=== PATIENT | female | born 2000 | race American Indian/Alaskan Native ===

== ENCOUNTER 2020-08-12 10:47 | Emergency (ER) | payer SELFPAY ==
[2020-08-12 11:05] VITALS: BP 137/68
[2020-08-12 12:20] LABS: Bilirubin,Urine NEG (Negative); Blood,Urine NEG (Negative); Color,Urine Yellow (Yellow); Mucus,Urine FEW /HPF; Protein,Urine <15 mg/dL mg/dL (Negative); Urobilinogen,Urine < 2.0 mg/dL (<2.0)
[2020-08-12 12:24] LABS: HCG Qualitative,Urine Positive (Negative)
--- NOTE | 2020-08-12 16:27 | Emergency Department Report ---
ED Female HPI - General Chief complaint: Urogenital-Female Stated complaint: POSS UTI Time Seen by Provider: 08/12/20 11:44 Source: patient Mode of arrival: Ambulatory Limitations: No Limitations - History of Present Illness Initial comments: 20-year-old F Bulgarian female with emerge department complaining possible sexual encounter which resulted in likely STD as she is been reporting some vaginal discharge some episodes of burning. Reports no pelvic pain no flank pain no fever, chills, sweats no hematuria. No vaginal bleeding. She is unsure if her partner actually has gonorrhea or chlamydia but thinks that it may have been 1 of the 2. She reports no vaginal rashes Severity: mild Quality: burning Improves with: none Worsens with: none Associated Symptoms: vaginal discharge. denies: vaginal bleeding, abdominal p ain, nausea/vomiting, loss of appetite, dysuria, hematuria, rash, shortness of breath, syncope, weakness - Related Data Previous Rx's Medication Instructions Recorded Last Taken Type Azithromycin [Zithromax TAB] 1,000 mg PO ONCE #2 tablet 08/12/20 Unknown Rx Cefixime [Suprax] 400 mg PO ONCE #1 capsule 08/12/20 Unknown Rx metroNIDAZOLE [Flagyl] 2,000 mg PO ONCE #4 tablet 08/12/20 Unknown Rx Allergies Allergy/AdvReac Type Severity Reaction Status Date / Time No Known Allergies Allergy Unverified 08/12/20 11:00 ED Review of Systems ROS: Stated complaint: POSS UTI Other details as noted in HPI Comment: All other systems reviewed and negative ED Past Medical Hx - Past Medical History Previous Medical History?: No - Surgical History Past Surgical History?: No - Social History Smoking Status: Never Smoker Substance Use Type: None - Medications Home Medications: Home Medications Medication Instructions Recorded Confirmed Last Taken Type Azithromycin [Zithromax TAB] 1,000 mg PO ONCE #2 tablet 08/12/20 Unknown Rx Cefixime [Suprax] 400 mg PO ONCE #1 capsule 08/12/20 Unknown Rx metroNIDAZOLE [Flagyl] 2,000 mg PO ONCE #4 tablet 08/12/20 Unknown Rx ED Physical Exam - General Limitations: No Limitations General appearance: alert, in no apparent distress - Head Head exam: Present: atraumatic, normocephalic - Eye Eye exam: Present: normal appearance, PERRL, EOMI Pupils: Present: normal accommodation - ENT ENT exam: Present: normal exam, normal orophraynx, mucous membranes moist - Neck Neck exam: Present: normal inspection - Respiratory Respiratory exam: Present: normal lung sounds bilaterally. Absent: respiratory distress - Cardiovascular Cardiovascular Exam: Present: regular rate, normal rhythm. Absent: systolic murmur, diastolic murmur, rubs, gallop - GI/Abdominal GI/Abdominal exam: Present: soft, normal bowel sounds - Extremities Exam Extremities exam: Present: normal inspection - Back Exam Back exam: Present: normal inspection - Neurological Exam Neurological exam: Present: alert, oriented X3 - Psychiatric Psychiatric exam: Present: normal affect, normal mood - Skin Skin exam: Present: warm, dry, intact, normal color. Absent: rash ED Course Vital Signs 08/12/20 11:03 Temperature 99.0 F Pulse Rate 88 Respiratory 18 Rate Blood Pressure 137/68 O2 Sat by Pulse 100 Oximetry ED Medical Decision Making - Lab Data Lab Results 08/12/20 Range/Units 11:05 Urine Color Yellow (Yellow) Urine Turbidity Clear (Clear) Urine pH 7.0 (5.0-7.0) Ur Specific Webb 1.019 (1.003-1.030) Urine Protein <15 mg/dl (Negative) mg/dL Urine Glucose (UA) Neg (Negative) mg/dL Urine Ketones Neg (Negative) mg/dL Urine Blood Neg (Negative) Urine Nitrite Neg (Negative) Urine Bilirubin Neg (Negative) Urine Urobilinogen < 2.0 (<2.0) mg/dL Ur Leukocyte Esterase Sm (Negative) Urine WBC (Auto) 4.0 (0.0-6.0) /HPF Urine RBC (Auto) 3.0 (0.0-6.0) /HPF U Epithel Cells (Auto) 6.0 (0-13.0) /HPF Urine Mucus Few /HPF Urine HCG, Qual Positive A (Negative) Critical care attestation.: If time is entered above; I have spent that time in minutes in the direct care of this critically ill patient, excluding procedure time. ED Disposition Clinical Impression: STD exposure, Vaginitis, Disposition: TO HOME OR SELFCARE Is pt being admited?: No Does the pt Need Aspirin: No Condition: Stable Instructions: Vaginitis (ED), Safe Sex (ED), Sexually Transmitted Diseases (ED) Prescriptions: metroNIDAZOLE [Flagyl] 2,000 mg PO ONCE #4 tablet Cefixime [Suprax] 400 mg PO ONCE #1 capsule Azithromycin [Zithromax TAB] 1,000 mg PO ONCE #2 tablet Referrals: BERONICA NICKERSON MD [Primary Care Provider] - 3-5 Days
== END 2020-08-12 16:20 | disposition home or self-care (01) ==
LOC: ED 10:47
DX: O26.891 Other specified pregnancy related conditions, first trimester (principal); O23.591 Infection of other part of genital tract in pregnancy, first trimester; Z20.2 Contact with and (suspected) exposure to infections with a predominantly sexual mode of transmission; Z3A.01 Less than 8 weeks gestation of pregnancy
CPT/HCPCS: 81001; 81025; 87210; 87591; 99283

== ENCOUNTER 2020-09-24 14:50 | Emergency (ER) | payer SELFPAY | END 2020-09-24 22:30 | disposition left against medical advice (07) | LOC: ED 14:50 | DX: O46.91 Antepartum hemorrhage, unspecified, first trimester (principal); Z3A.12 12 weeks gestation of pregnancy; Z53.21 Procedure and treatment not carried out due to patient leaving prior to being seen by health care provider ==

== ENCOUNTER 2021-01-04 15:43 | Emergency (ER) | payer MEDICAID ==
[2021-01-04 16:03] VITALS: BP 122/52
[2021-01-04 16:44] LABS: HCG Qualitative,Urine Negative (Negative)
[2021-01-04 16:46] LABS: Bilirubin,Urine NEG (Negative); Blood,Urine NEG (Negative); Color,Urine Yellow (Yellow); Mucus,Urine 1+ /HPF; Urobilinogen,Urine < 2.0 mg/dL (<2.0)
--- NOTE | 2021-01-04 16:59 | Emergency Department Report ---
ED Female HPI - General Chief complaint: Urogenital-Female Stated complaint: UTI SYMPTOMS Time Seen by Provider: 01/04/21 16:51 Source: patient Mode of arrival: Ambulatory Limitations: No Limitations - History of Present Illness Initial comments: 20-year-old female presents to the ER today with a 3 to 4-day history of dysuria, urinary frequency, and white vaginal discharge with mild itching. She reports mild intermittent lower abdominal discomfort when she urinates. Patient states that she was informed today that she was exposed to possibly chlamydia. She admits she had unprotected sex with a new sexual partner about 1 week ago. She states her last menstrual cycle was 2 weeks ago. She denies any abnormal vaginal bleeding, back pain, nausea, fever, chills or any other symptoms at this time. Complaint: vaginal discharge, dysuria -: days(s) (3-4) - Related Data Previous Rx's Medication Instructions Recorded Last Taken Type Doxycycline Hyclate [Doxycycline 100 mg PO Q12HR #14 tab 01/04/21 Unknown Rx Hyclate TAB] metroNIDAZOLE [metroNIDAZOLE 70 gm VG QHS 4 Days gel.w.appl 01/04/21 Unknown Rx VAGINAL 0.75% gel] Allergies Allergy/AdvReac Type Severity Reaction Status Date / Time No Known Allergies Allergy Verified 01/04/21 15:59 ED Review of Systems ROS: Stated complaint: UTI SYMPTOMS Other details as noted in HPI Comment: All other systems reviewed and negative Constitutional: denies: chills, fever Respiratory: denies: cough, shortness of breath, wheezing Cardiovascular: denies: chest pain, palpitations Gastrointestinal: abdominal pain. denies: nausea, vomiting, diarrhea, constipation, hematemesis, hematochezia Genitourinary: urgency, dysuria, frequency, discharge Musculoskeletal: denies: back pain, joint swelling, arthralgia Skin: denies: rash, lesions Neurological: denies: headache, weakness, paresthesias Psychiatric: denies: anxiety, depression Hematological/Lymphatic: denies: easy bleeding, easy bruising ED Past Medical Hx - Past Medical History Previous Medical History?: No - Surgical History Past Surgical History?: No - Social History Smoking Status: Never Smoker Substance Use Type: None - Medications Home Medications: Home Medications Medication Instructions Recorded Confirmed Last Taken Type Doxycycline Hyclate [Doxycycline 100 mg PO Q12HR #14 tab 01/04/21 Unknown Rx Hyclate TAB] metroNIDAZOLE [metroNIDAZOLE 70 gm VG QHS 4 Days gel.w.appl 01/04/21 Unknown Rx VAGINAL 0.75% gel] ED Physical Exam - General Limitations: No Limitations General appearance: alert, in no apparent distress - Eye Eye exam: Present: normal appearance, EOMI - ENT ENT exam: Present: normal exam, normal orophraynx, mucous membranes moist - Neck Neck exam: Present: normal inspection, full ROM - Respiratory Respiratory exam: Present: normal lung sounds bilaterally. Absent: respiratory distress - Cardiovascular Cardiovascular Exam: Present: regular rate, normal rhythm, normal heart sounds - GI/Abdominal GI/Abdominal exam: Present: soft. Absent: distended, tenderness - External exam: Present: normal external exam Speculum exam: Present: vaginal discharge (Moderate amount of white-yellow discharge). Absent: erythema, vaginal bleeding, foreign body, laceration Bi-manual exam: Present: normal bi-manual exam - Extremities Exam Extremities exam: Present: normal inspection - Neurological Exam Neurological exam: Present: alert, oriented X3, CN II-XII intact, normal gait - Psychiatric Psychiatric exam: Present: normal affect, normal mood - Skin Skin exam: Present: intact ED Course Vital Signs 01/04/21 16:00 Temperature 98.7 F Pulse Rate 76 Respiratory 16 Rate Blood Pressure 122/52 O2 Sat by Pulse 96 Oximetry Critical care attestation.: If time is entered above; I have spent that time in minutes in the direct care of this critically ill patient, excluding procedure time. ED Disposition Clinical Impression: Bacterial vaginosis, Exposure to chlamydia Disposition: DC-01 TO HOME OR SELFCARE Is pt being admited?: No Does the pt Need Aspirin: No Condition: Stable Instructions: Bacterial Vaginosis, Chlamydia, Female, [id number], Preventing Sexually Transmitted Infections, Adult, Bacterial Vaginosis (ED) Additional Instructions: Use the gel and take the doxycycline as prescribed. Recommend no sexual contact for the next 7 days. It is important that you practice safe sex. Follow-up with your primary care doctor. Return to the ER if your symptoms changes or worsens in any way. Prescriptions: metroNIDAZOLE [metroNIDAZOLE VAGINAL 0.75% gel] 70 gm VG QHS 4 Days gel.w.appl Doxycycline Hyclate [Doxycycline Hyclate TAB] 100 mg PO Q12HR #14 tab Referrals: PRIMARY CARE, [Primary Care Provider] - 3-5 Days Forms: STI Treatment and Prevention
[2021-01-04] MEDS ORDERED: LIDOCAINE-MPF (1%) 10 MG/1 ML VIAL 5 ML INFILTRATI ONE (17:06)
== END 2021-01-04 18:20 | disposition home or self-care (01) ==
LOC: ED 15:43
DX: N76.0 Acute vaginitis (principal); B96.89 Other specified bacterial agents as the cause of diseases classified elsewhere; Z20.2 Contact with and (suspected) exposure to infections with a predominantly sexual mode of transmission; Z79.899 Other long term (current) drug therapy
CPT/HCPCS: 81001; 81025; 87086; 87210; 87591; 96372; 99284; J0696

== ENCOUNTER 2021-05-06 12:54 | Emergency (ER) | payer MEDICAID ==
--- NOTE | 2021-05-06 14:06 | XRay Report ---
RIGHT ANKLE 3 VIEW(S) INDICATION / CLINICAL INFORMATION: fall and right ankle injury COMPARISON: None available. FINDINGS: BONES / JOINT(S): No acute fracture or subluxation. No significant arthritis. The ankle mortise is in tact. SOFT TISSUES: Mild soft tissue swelling and edema around the ankle. ADDITIONAL FINDINGS: None. Signer Name: Casper Rivera MD Signed: 05/06/2021 2:01 PM Workstation Name: [id number]
--- NOTE | 2021-05-06 14:17 | Emergency Department Report ---
ED General Adult HPI - General Chief complaint: Extremity Injury, Lower Stated complaint: ANKLE INJURY Time Seen by Provider: 05/06/21 14:01 Source: patient Mode of arrival: Ambulatory Limitations: No Limitations - History of Present Illness Initial comments: 20-year-old female patient presents to the emergency department with complaints of right foot and right ankle pain status post mechanical fall yesterday. Patient states she was walking down stairs when she fell down approximately 3 steps and twisted her ankle. Patient states she "heard a pop" when the injury occurred. No history of prior injuries to the right foot/right ankle. Pain is worse today than it was at the time of the injury. She has been unable to bear weight today. Denies hip pain, knee pain, paresthesias, numbness, skin color changes. Denies all other complaints at this time. - Related Data Previous Rx's Medication Instructions Recorded Last Taken Type Doxycycline Hyclate [Doxycycline 100 mg PO Q12HR #14 tab 01/04/21 Unknown Rx Hyclate TAB] metroNIDAZOLE [metroNIDAZOLE 70 gm VG QHS 4 Days gel.w.appl 01/04/21 Unknown Rx VAGINAL 0.75% gel] Naproxen 500 mg PO BID #20 tablet 05/06/21 Unknown Rx Allergies Allergy/AdvReac Type Severity Reaction Status Date / Time No Known Allergies Allergy Verified 01/04/21 15:59 ED Review of Systems ROS: Stated complaint: ANKLE INJURY Other details as noted in HPI Other: GENERAL: Negative for fever. CARDIOVASCULAR: Negative for chest pain. PULMONARY: Negative for shortness of breath. GASTROINTESTINAL: Negative for abdominal pain. MUSCULOSKELETAL: Positive for foot and ankle pain. NEUROLOGICAL: Negative for headache. INTEGUMENTARY: Negative for rash. ED Past Medical Hx - Past Medical History Previous Medical History?: No - Surgical History Past Surgical History?: No - Social History Smoking Status: Never Smoker Substance Use Type: None - Medications Home Medications: Home Medications Medication Instructions Recorded Confirmed Last Taken Type Doxycycline Hyclate [Doxycycline 100 mg PO Q12HR #14 tab 01/04/21 Unknown Rx Hyclate TAB] metroNIDAZOLE [metroNIDAZOLE 70 gm VG QHS 4 Days gel.w.appl 01/04/21 Unknown Rx VAGINAL 0.75% gel] Naproxen 500 mg PO BID #20 tablet 05/06/21 Unknown Rx ED Physical Exam - General Limitations: No Limitations - Other Other exam information: General: Awake, appropriately interactive, no acute distress. Neck: Supple. Full range of motion intact. Cardiovascular: Normal peripheral perfusion. Pulmonary: No respiratory distress. Patient is speaking normally without use of accessory muscles. Skin: No apparent rashes or lesions. Neurological: No facial asymmetry. Speech is clear. Follows commands. Patient is alert and oriented. Musculoskeletal: Tenderness to palpation along the right lateral malleolus and base of the right fifth metatarsal without obvious deformity or dislocation. Minimal surrounding soft tissue swelling. No plantar ecchymosis. Sanchez test is negative. Distal neurovascular and motor/sensory function intact. Psych: Cooperative. Appropriate mood and affect. ED Medical Decision Making - Medical Decision Making Differential diagnosis including but not limited to: sprain, strain, fracture, contusion, dislocation, Achilles tendon injury On reevaluation, patient remains stable. Repeat neurovascular exam remains intact. X-rays without acute process. History and exam findings suggestive of soft tissue injury; no clinical indication for further diagnostic work-up on an emergent basis at this time. Patient will be discharged home with appropriate analgesics, Triston wrap, crutches, and referral to primary care provider for close outpatient follow-up. Patient expressed understanding and is agreeable to plan of care. RICE precautions discussed. Strict return precautions provided. Repeat exam is unremarkable and benign. History, exam, diagnostic testing, and current condition do not suggest worrisome pathology to warrant further testing, continued ED treatment, admission, or surgical evaluation at this point. Given the low probability of a significant medical illness, it would be more likely to result in harm than benefit to perform further testing at this stage. Discussed findings, presumptive diagnosis, need for follow-up and specific signs/symptoms that should prompt immediate return to the emergency department. Instructions were explained in detail to the patient in addition to giving written discharge information. Patient expressed understanding and was given the opportunity to ask questions, all of which were satisfactorily answered prior to discharge home. Critical care attestation.: If time is entered above; I have spent that time in minutes in the direct care of this critically ill patient, excluding procedure time. ED Disposition Clinical Impression: Right ankle sprain Qualifiers: Encounter type: initial encounter Involved ligament of ankle: unspecified ligament Qualified Code(s): S93.401A - Sprain of unspecified ligament of right ankle, initial encounter Right foot sprain Qualifiers: Encounter type: initial encounter Qualified Code(s): S93.601A - Unspecified sprain of right foot, initial encounter Disposition: - TO HOME OR SELFCARE Is pt being admited?: No Does the pt Need Aspirin: No Condition: Stable Instructions: Ankle Sprain, Foot Sprain Additional Instructions: Take Tylenol every 4 hours as needed for pain. Take Naprosyn twice daily with food as needed for pain. Wear Triston wrap as directed. Use crutches as needed. Keep right foot/ankle elevated as often as possible to reduce swelling. Ply ice to affected area as needed to reduce swelling. Follow-up with primary care provider next week. Call Saturday to schedule an appointment. See referral information below. Return to the emergency department immediately for new or worsening symptoms. Prescriptions: Naproxen 500 mg PO BID #20 tablet Referrals: MOIZ KELLEY MD [Staff Physician] - 3-5 Days [facility] [Outside] - 3-5 Days [facility] [Outside] - 3-[address] [facility] [place] [Outside] - 3-5 Days [facility] [Provider Group] - 3-5 Days Time of Disposition: 15:20
--- NOTE | 2021-05-06 15:05 | XRay Report ---
RIGHT FOOT 4 VIEW(S) INDICATION / CLINICAL INFORMATION: foot/ankle pain s/p fall COMPARISON: None available. FINDINGS: BONES / JOINT(S): No acute fracture or subluxation. No significant arthritis. SOFT TISSUES: Mild generalized soft tissue swelling and edema foot. ADDITIONAL FINDINGS: None. Signer Name: Casper Rivera MD Signed: 05/06/2021 3:01 PM Workstation Name: [id number]
== END 2021-05-06 16:22 | disposition home or self-care (01) ==
LOC: ED 12:54
DX: M25.571 Pain in right ankle and joints of right foot (principal); S93.401A Sprain of unspecified ligament of right ankle, initial encounter; S93.601A Unspecified sprain of right foot, initial encounter; Z79.899 Other long term (current) drug therapy; X50.1XXA Overexertion from prolonged static or awkward postures, initial encounter; Y93.89 Activity, other specified; Y92.89 Other specified places as the place of occurrence of the external cause; Y99.8 Other external cause status

== ENCOUNTER 2021-08-26 08:21 | Emergency (ER) | payer SELFPAY ==
[2021-08-26] MEDS ORDERED: LIDOCAINE-MPF (1%) 10 MG/1 ML VIAL 5 ML INFILTRATI ONE (09:53)
--- NOTE | 2021-08-26 09:54 | Emergency Department Report ---
ED Female HPI - General Stated complaint: UTI SYMPTOMS/STD EXPOSURE Time Seen by Provider: 08/26/21 09:43 Source: patient Mode of arrival: Ambulatory Limitations: No Limitations - History of Present Illness Initial comments: 21-year-old female presents to the ER today with complaints of UTI symptoms and possible STD. Patient states that she started with white/yellow vaginal discharge, dysuria, urinary frequency and intermittent low abdominal cramping a couple days ago. She states that she was notified by her partner last week that he was positive for chlamydia and trichomonas. She states that this is a new partner for her, and he did have unprotected sexual intercourse. She states that her last menstrual cycle was July 07. She is not currently on any control. She reports no additional symptoms at this time. MD Complaint: vaginal discharge, dysuria, pelvic pain, possible STD -: days(s) - Related Data Previous Rx's Medication Instructions Recorded Last Taken Type metroNIDAZOLE [metroNIDAZOLE 70 gm VG QHS 4 Days gel.w.appl 01/04/21 Unknown Rx VAGINAL 0.75% gel] Naproxen 500 mg PO BID #20 tablet 05/06/21 Unknown Rx Doxycycline Hyclate [Doxycycline 100 mg PO Q12HR #14 tab 08/26/21 Unknown Rx Hyclate TAB] metroNIDAZOLE [Flagyl] 500 mg PO Q12HR #14 tab 08/26/21 Unknown Rx Allergies Allergy/AdvReac Type Severity Reaction Status Date / Time No Known Allergies Allergy Verified 01/04/21 15:59 ED Review of Systems ROS: Stated complaint: UTI SYMPTOMS/STD EXPOSURE Other details as noted in HPI Comment: All other systems reviewed and negative Constitutional: denies: chills, fever Eyes: denies: eye pain, eye discharge, vision change ENT: denies: ear pain, throat pain Respiratory: denies: cough, shortness of breath, SOB with exertion, SOB at rest, stridor, wheezing Cardiovascular: denies: chest pain, palpitations, dyspnea on exertion, edema, syncope, paroxysmal nocturnal dyspnea Gastrointestinal: denies: abdominal pain, nausea, vomiting, diarrhea, constipation, hematemesis, melena, hematochezia Genitourinary: dysuria, frequency, discharge. denies: hematuria, abnormal menses, dyspareunia Musculoskeletal: denies: back pain, joint swelling, arthralgia Skin: denies: rash, lesions, change in color, change in hair/nails, pruritus Neurological: denies: headache, weakness, paresthesias Psychiatric: denies: anxiety, depression, auditory hallucinations, visual hallucinations, homicidal thoughts, suicidal thoughts Hematological/Lymphatic: denies: easy bleeding, easy bruising, swollen glands ED Past Medical Hx - Social History Smoking Status: Never Smoker Substance Use Type: None - Medications Home Medications: Home Medications Medication Instructions Recorded Confirmed Last Taken Type metroNIDAZOLE [metroNIDAZOLE 70 gm VG QHS 4 Days gel.w.appl 01/04/21 Unknown Rx VAGINAL 0.75% gel] Naproxen 500 mg PO BID #20 tablet 05/06/21 Unknown Rx Doxycycline Hyclate [Doxycycline 100 mg PO Q12HR #14 tab 08/26/21 Unknown Rx Hyclate TAB] metroNIDAZOLE [Flagyl] 500 mg PO Q12HR #14 tab 08/26/21 Unknown Rx ED Physical Exam - General General appearance: alert, in no apparent distress - Head Head exam: Present: atraumatic, normocephalic, normal inspection - Eye Eye exam: Present: normal appearance, PERRL, EOMI Pupils: Present: normal accommodation - Neck Neck exam: Present: normal inspection, full ROM. Absent: meningismus - Respiratory Respiratory exam: Present: normal lung sounds bilaterally. Absent: respiratory distress, wheezes, rales, rhonchi - Cardiovascular Cardiovascular Exam: Present: regular rate, normal rhythm - GI/Abdominal GI/Abdominal exam: Present: soft. Absent: distended, tenderness, guarding, rebound - Neurological Exam Neurological exam: Present: alert, oriented X3, CN II-XII intact, normal gait - Psychiatric Psychiatric exam: Present: normal affect, normal mood - Skin Skin exam: Present: intact ED Course Vital Signs 08/26/21 09:46 Temperature 97.4 F L Pulse Rate 56 L Respiratory 16 Rate Blood Pressure 118/57 O2 Sat by Pulse 100 Oximetry Critical care attestation.: If time is entered above; I have spent that time in minutes in the direct care of this critically ill patient, excluding procedure time. ED Disposition Clinical Impression: STD exposure, Vaginal discharge Disposition: HOME / SELF CARE / HOMELESS Is pt being admited?: No Does the pt Need Aspirin: No Condition: Stable Instructions: Trichomoniasis, Safe Sex, Vaginitis Additional Instructions: Take the doxycycline and the flagyl as prescribed. I recommend taking antibiotics with food. Do not drink alcohol while taking the Flagyl. I recommend following up with local health department or your [facility] for additional STD testing such as syphilis, HIV and hepatitis. I do recommend practicing safe sex. You can take Tylenol or ibuprofen as needed for pain. Return to the ER if your symptoms changes or worsens in any way. Prescriptions: Doxycycline Hyclate [Doxycycline Hyclate TAB] 100 mg PO Q12HR #14 tab metroNIDAZOLE [Flagyl] 500 mg PO Q12HR #14 tab Referrals: PRIMARY CARE [Primary Care Provider] - 3-5 Days [facility] [Provider Group] - 3-5 Days Forms: Work/School Release Form(ED) Time of Disposition: 11:45
[2021-08-26 11:38] LABS: HCG Qualitative,Urine Negative (Negative)
[2021-08-26 11:43] LABS: Bacteria,Urine 1+ /HPF (Negative); Bilirubin,Urine NEG (Negative); Blood,Urine NEG (Negative); Color,Urine Yellow (Yellow); Mucus,Urine 1+ /HPF; Protein,Urine <15 mg/dL mg/dL (Negative)
[2021-08-26 12:06] VITALS: BP 110/71
== END 2021-08-26 12:05 | disposition home or self-care (01) ==
LOC: ED 08:21
DX: Z20.2 Contact with and (suspected) exposure to infections with a predominantly sexual mode of transmission (principal); N89.8 Other specified noninflammatory disorders of vagina; Z79.899 Other long term (current) drug therapy
CPT/HCPCS: 81001; 81025; 99283; J0696

== ENCOUNTER 2022-08-08 19:14 | Outpatient (CLI) | payer MEDICAID ==
[2022-08-08] MEDS ORDERED: LIDOCAINE-MPF (1%) 10 MG/1 ML VIAL 5 ML INFILTRATI ONE (20:48)
[2022-08-09] MEDS ORDERED: AZITHROMYCIN 250 MG TAB PO ONE (20:53)
== END 2022-08-08 22:42 | disposition home or self-care (01) ==
LOC: TRG 19:14 → APU 19:17 → TRG 22:42
PROVIDERS: ATTEND Obstetrics & Gynecology
DX: O98.313 Other infections with a predominantly sexual mode of transmission complicating pregnancy, third trimester (principal); Z3A.32 32 weeks gestation of pregnancy
CPT/HCPCS: 96372; J0696